=== PATIENT | female | born 1995 | race Caucasian/White ===

== ENCOUNTER 2022-08-29 19:17 | Emergency (ER) | payer OTHER, SELFPAY ==
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
[2022-08-29 19:19] VITALS: BP 140/96; PULSE 107; RESP 19; TEMP 36.4; O2SAT 97
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
[2022-08-29] MEDS: ACETAMINOPHEN 500 MG TABLET 1000 MG PO (19:49)
[2022-08-29] MEDS: TETANUS,DIPHTHERIA,AC PERTUSSIS ADULT (0.5 ML) BOOSTRIX IM (19:49)
== END 2022-08-29 20:44 | disposition home or self-care (01) ==
PROVIDERS: Emergency Provider Physician Assistant
DX: S00.83XA Contusion of other part of head, initial encounter (principal); S50.312A Abrasion of left elbow, initial encounter; S50.311A Abrasion of right elbow, initial encounter; S70.212A Abrasion, left hip, initial encounter; S00.31XA Abrasion of nose, initial encounter; Z23 Encounter for immunization; V17.0XXA Pedal cycle driver injured in collision with fixed or stationary object in nontraffic accident, initial encounter; Y93.55 Activity, bike riding
CPT/HCPCS: 70450; 70486; 72125; 90471; 90715; 99284; A9270